=== PATIENT | female | born 1965 | race Two or more races ===

== ENCOUNTER 2019-08-18 05:50 | Day surgery (SDC) | payer OTHER ==
[~2019-08-18 05:50] MED LIST: TRAMADOL HCL50 MG PO; TRIPLE ANTIBIOT15 GM TP
[2019-08-18] MEDS ORDERED: PERCOCET 5-3251 EACH PO (14:02)
[2019-08-18] MEDS ORDERED: NEURONTIN300 MG PO (14:06)
== END 2019-08-18 18:40 | disposition home or self-care (01) ==
LOC: CIR.AMB 05:50
DX: K80.10 Calculus of gallbladder with chronic cholecystitis without obstruction (principal)

== ENCOUNTER 2019-08-24 14:07 | Emergency (ER) | payer OTHER ==
[~2019-08-24] VITALS: Ht 149.9 cm; Wt 49.4 kg
[~2019-08-24 14:07] MED LIST changes: +NEURONTIN300 MG PO; +PERCOCET 5-3251 EACH PO
== END 2019-08-24 18:00 | disposition home or self-care (01) ==
LOC: ER
DX: R14.0 Abdominal distension (gaseous) (principal); K59.09 Other constipation